=== PATIENT | male | born 1985 | race Caucasian/White ===

== ENCOUNTER 2020-11-07 10:21 | Emergency (ER) | payer OTHER ==
[~2020-11-07] VITALS: Ht 182.9 cm; Wt 106.6 kg
== END 2020-11-07 12:46 | disposition home or self-care (01) ==
LOC: ED 10:21
PROC: 0HQGXZZ Repair Left Hand Skin, External Approach (ICD-10-PCS; principal; 2020-11-07)
DX: S67.193A Crushing injury of left middle finger, initial encounter (principal); W20.8XXA Other cause of strike by thrown, projected or falling object, initial encounter
CPT/HCPCS: 12001; 73140; 99283-25